=== PATIENT | female | born 1985 | race Caucasian/White ===

== ENCOUNTER → 2024-10-29 10:31 | Outpatient (REF) | payer BC, SELFPAY | LOC: RCS 10:31 | PROVIDERS: FAMILY PHYSICIAN Student in an Organized Health Care Education/Training Program | DX: R00.2 Palpitations (principal); I49.2 Junctional premature depolarization | CPT/HCPCS: 93225; 93226 ==

== ENCOUNTER → 2024-12-04 09:06 | Outpatient (REF) | payer BC, SELFPAY | LOC: RCS 09:06 | PROVIDERS: ATTENDING PHYSICIAN Student in an Organized Health Care Education/Training Program | DX: R00.2 Palpitations (principal) | CPT/HCPCS: 93306 ==

== ENCOUNTER → 2025-02-10 09:50 | Outpatient (REF) | payer BC, SELFPAY | LOC: RAD 09:50 | PROVIDERS: ATTENDING PHYSICIAN Student in an Organized Health Care Education/Training Program | DX: R10.9 Unspecified abdominal pain (principal) | CPT/HCPCS: 76700 ==